=== PATIENT | female | born 1975 | race African-American/Black ===

== ENCOUNTER 2019-03-15 08:22 | Emergency (ER) | payer MEDICAID, OTHER ==
[~2019-03-15] VITALS: Ht 165.1 cm; Wt 79.0 kg
--- NOTE | 2019-03-15 08:49 | NUR ---
ASHLEY SALDANA WAS IN TO SEE PT. PT WITH MULTIPLE COMPLAINTS. PT STATES SHE LOST HER APARTMENT 2 DAYS AGO AND IS STAYING AT THE NURSING HOME NOW. STATES SHE'S UNDER A LOT OF STRESS. C/O INTERMITTENT CHEST HEAVINESS AND DIZZINESS, STATES, "IT FEELS LIKE I'M PASSING OUT WHEN I GO TO SLEEP." PT ALSO C/O R FLANK PAIN, RADIATING TO ABD.
[2019-03-15] MEDS ORDERED: ASPIRIN 81 MG TABLET CHEW ONE (08:56)
[2019-03-15] MEDS ORDERED: LORazepam 2 MG/ML, 1ML ONE (08:57)
[2019-03-15] MEDS ORDERED: SODIUM CHLORIDE FLUSH 10ML SYR IVF ONE (09:00)
[2019-03-15] MEDS ORDERED: ASPIRIN 81 MG TABLET CHEW PO ONE (09:00)
[2019-03-15] MEDS ORDERED: LORazepam 2 MG/ML, 1ML IVPush ONE (09:00)
--- NOTE | 2019-03-15 09:18 | NUR ---
PIV STARTED, LABS DRAWN. PATIENT MEDICATED WITH ASPIRIN AND ATIVAN. PATIENT DENIES FURTHER NEEDS AT THIS TIME.
[2019-03-15 09:31] LABS: BASOPHILS # (AUTO) 0.04 x10^3/uL (0-0.1); BASOPHILS % (AUTO) 0 % (0-1); EOSINOPHILS # (AUTO) 0.12 x10^3/uL (0-0.4); EOSINOPHILS % (AUTO) 1 % (1-7); LYMPHOCYTES # (AUTO) 3.62 x10^3/uL (1-3.4); LYMPHOCYTES % (AUTO) 27 % (22-44); MD NO; MEAN CORPUSCULAR HEMOGLOBIN 28.8 pg (27.0-34.8); MEAN CORPUSCULAR HGB CONC 32.7 g/dL (32.4-35.8); MEAN CORPUSCULAR VOLUME 87.9 fL (80-100); MEAN PLATELET VOLUME 7.9 fL (7.4-10.4); MONOCYTES # (AUTO) 0.63 x10^3/uL (0.2-0.8); MONOCYTES % (AUTO) 5 % (2-9); NEUTROPHILS # (AUTO) 8.84 x10^3/uL (1.8-6.8); NEUTROPHILS % (AUTO) 67 % (42-75); PLATELET COUNT 407 x10^3/uL (130-400); RED BLOOD COUNT 4.61 x10^6/uL (3.82-5.3)
[2019-03-15 09:41] LABS: ALBUMIN 3.5 g/dL (3.4-5.0); ANION GAP 6 mmol/L (5-15); CHLORIDE 107 mmol/L (98-107); CREATININE 0.66 mg/dL (0.55-1.02)
[2019-03-15 09:45] LABS: TROPONIN I < 0.015 ng/mL (0.000-0.045)
[2019-03-15 10:21] VITALS: BP 126/86
[2019-03-15 10:28] LABS: MICROSCOPIC NOT IND
--- NOTE | 2019-03-15 10:47 | NUR ---
ASHLEY SALDANA AT FOR RECHECK.
--- NOTE | 2019-03-15 11:02 | NUR ---
D/C INSTRUCTIONS, MEDS & F/U APPT RV'WD WITH PT, SHE VERBALIZES UNDERSTANDING. RX GIVEN X1. PT AMBULATED OUT OF ED WITHOUT DIFFICULTY. CAB VOUCHER PROVIDED BACK TO CORRECTION.
== END 2019-03-15 11:04 | disposition home or self-care (01) ==
LOC: ED 08:57
DX: F41.1 Generalized anxiety disorder (principal); R42 Dizziness and giddiness; R51 Headache; F17.210 Nicotine dependence, cigarettes, uncomplicated
CPT/HCPCS: 36415; 71045; 80048; 81003; 82040; 83880; 84484; 84703; 85025; 93005; 96374; 99284; J2060

== ENCOUNTER 2019-10-29 18:32 | Emergency (ER) | payer OTHER ==
[~2019-10-29] VITALS: Ht 165.1 cm; Wt 78.5 kg
[2019-10-29] MEDS ORDERED: MECLIZINE CHEWABLE 25 MG TAB PO ONE (19:00)
[2019-10-29] MEDS ORDERED: ONDANSETRON ODT 4 MG PO ONE (19:00)
--- NOTE | 2019-10-29 19:02 | NUR ---
FIRST CONTACT WITH PT. PT HAS C/O DIZZINESS, LEG WEAKNESS AND HOT FLASHES FOR THE LAST 3 DAYS. PT DENIES ANY OTHER SX. PT'S AOX4. RESPS EVEN AND UNLABORED. BP/SPO2 MONITORS IN PLACE. CALL LIGHT WITHIN REACH. EDMD AT BEDSIDE TO EVALUATE AT THIS TIME.
[2019-10-29] MEDS ORDERED: MECLIZINE CHEWABLE 25 MG TAB ONE (19:08)
[2019-10-29] MEDS ORDERED: ONDANSETRON ODT 4 MG ONE (19:08)
--- NOTE | 2019-10-29 19:10 | NUR ---
PT AMB TO BR AND BACK TO ROOM WITH STEADY GAIT.
--- NOTE | 2019-10-29 19:13 | NUR ---
PT MEDICATED PER EMAR. PT TOLERATED WELL.
[2019-10-29 19:17] LABS: BASOPHILS # (AUTO) 0.05 x10^3/uL (0-0.1); BASOPHILS % (AUTO) 0 % (0-1); EOSINOPHILS # (AUTO) 0.16 x10^3/uL (0-0.4); EOSINOPHILS % (AUTO) 1 % (1-7); LYMPHOCYTES # (AUTO) 2.38 x10^3/uL (1-3.4); LYMPHOCYTES % (AUTO) 19 % (22-44); MD NO; MEAN CORPUSCULAR HEMOGLOBIN 29.2 pg (27.0-34.8); MEAN CORPUSCULAR HGB CONC 33.2 g/dL (32.4-35.8); MEAN PLATELET VOLUME 7.3 fL (7.4-10.4); MONOCYTES % (AUTO) 4 % (2-9); NEUTROPHILS # (AUTO) 9.37 x10^3/uL (1.8-6.8); NEUTROPHILS % (AUTO) 75 % (42-75); PLATELET COUNT 604 x10^3/uL (130-400); RED BLOOD COUNT 4.68 x10^6/uL (3.82-5.3)
--- NOTE | 2019-10-29 19:17 | NUR ---
URINE COLLECTED AND UA SENT.
[2019-10-29 19:24] LABS: MICROSCOPIC NOT IND
[2019-10-29 19:25] LABS: ALBUMIN 3.8 g/dL (3.4-5.0); ANION GAP 6 mmol/L (5-15); CALCIUM 9.6 mg/dL (8.5-10.1); CHLORIDE 108 mmol/L (98-107)
[2019-10-29 19:57] VITALS: BP 135/100
--- NOTE | 2019-10-29 19:58 | NUR ---
PT STATED "I FEEL BETTER. NO MORE NAUSEA AND DZY" PT'S AOX4. RESPS EVEN AND UNLABORED.
--- NOTE | 2019-10-29 20:26 | NUR ---
Patient given discharge instructions and they have confirmed that they understand the instructions. Patient ambulatory with steady gait. taxi voucher given at ut.
== END 2019-10-29 20:27 | disposition home or self-care (01) ==
LOC: ED 20:21
DX: R42 Dizziness and giddiness (principal); R53.83 Other fatigue; R06.02 Shortness of breath; M19.90 Unspecified osteoarthritis, unspecified site; F17.200 Nicotine dependence, unspecified, uncomplicated; Z90.710 Acquired absence of both cervix and uterus
CPT/HCPCS: 36415; 80048; 81003; 82040; 85025; 93005; 99284; Q0162